=== PATIENT | male | born 1965 | race Hispanic/Latino ===

== ENCOUNTER → 2016-07-13 | Outpatient (REF) | payer MEDICARE, MEDICAID ==
[~2016-07-13] MED LIST: IBUP-1114 PO; NORC5TAB PO; PROA1AER INH; TYLE325T5 PO
[2016-07-13 18:42] LABS: ALBUMIN 4.2 GM/DL (3.2-5.2); ALBUMIN/GLOBULIN RATIO 1.45 (1.00-1.93); ALKALINE PHOSPHATASE 65 U/L (45-117); ALT/SGPT 23 U/L (12-78); ANION GAP 8 MEQ/L (8-16); AST/SGOT 14 U/L (15-37); BILIRUBIN,TOTAL 0.4 MG/DL (0.2-1.0); BLOOD UREA NITROGEN 10 MG/DL (7-18); CALCIUM LEVEL 9.3 MG/DL (8.5-10.1); CARBON DIOXIDE LEVEL 27 MEQ/L (21-32); CHLORIDE LEVEL 104 MEQ/L (98-107); GLOMERULAR FILTRATION RATE > 60.0 (>56); GLUCOSE, FASTING 92 MG/DL (70-105); MAGNESIUM LEVEL 1.9 MG/DL (1.8-2.4); POTASSIUM SERUM 4.4 MEQ/L (3.5-5.1); SODIUM LEVEL 139 MEQ/L (136-145); TOTAL PROTEIN 7.1 GM/DL (6.4-8.2)
[2016-07-13 18:47] LABS: MEAN CORPUSCULAR HEMOGLOBIN 32.8 pg (27.0-33.0); MEAN CORPUSCULAR HGB CONC 33.7 g/dl (32.0-36.5); MEAN CORPUSCULAR VOLUME 97.3 fl (80.0-96.0); RED CELL DISTRIBUTION WIDTH 13.6 % (11.5-14.5); WHITE BLOOD COUNT 5.9 K/mm3 (4.0-10.0)
[2016-07-13 19:32] LABS: FOLATE > 24.0 NG/ML; VITAMIN B12 LEVEL 801 PG/ML
== END ==
LOC: M SFHCPLAZ 15:12
PROVIDERS: ATTEND Nurse Practitioner Family
DX: M54.41 Lumbago with sciatica, right side (principal); M62.830 Muscle spasm of back; Z79.1 Long term (current) use of non-steroidal anti-inflammatories (NSAID); Z79.899 Other long term (current) drug therapy
CPT/HCPCS: 36415; 80053; 82306; 82607; 82746; 83735; 85027; G0463

== ENCOUNTER → 2016-12-20 | Outpatient (REF) | payer MEDICARE, MEDICAID ==
[~2016-12-20] MED LIST changes: +NORC1TAB4 PO; -NORC5TAB PO; -PROA1AER INH; +PROAAER10 INH
[2016-12-20 11:50] LABS: MEAN CORPUSCULAR HEMOGLOBIN 33.2 pg (27.0-33.0); MEAN CORPUSCULAR HGB CONC 33.8 g/dl (32.0-36.5); MEAN CORPUSCULAR VOLUME 98.1 fl (80.0-96.0); WHITE BLOOD COUNT 5.3 K/mm3 (4.0-10.0)
[2016-12-20 12:04] LABS: ALBUMIN 4.1 GM/DL (3.2-5.2); ALBUMIN/GLOBULIN RATIO 1.46 (1.00-1.93); ALKALINE PHOSPHATASE 62 U/L (45-117); ALT/SGPT 23 U/L (12-78); ANION GAP 7 MEQ/L (8-16); AST/SGOT 20 U/L (15-37); BILIRUBIN,TOTAL 0.5 MG/DL (0.2-1.0); BLOOD UREA NITROGEN 4 MG/DL (7-18); CALCIUM LEVEL 9.3 MG/DL (8.5-10.1); CARBON DIOXIDE LEVEL 28 MEQ/L (21-32); CHLORIDE LEVEL 104 MEQ/L (98-107); GLOMERULAR FILTRATION RATE > 60.0 (>56); GLUCOSE, FASTING 113 MG/DL (70-105); POTASSIUM SERUM 4.7 MEQ/L (3.5-5.1); SODIUM LEVEL 139 MEQ/L (136-145); TOTAL PROTEIN 6.9 GM/DL (6.4-8.2)
== END ==
LOC: M SFHCPLAZ 08:55
PROVIDERS: ATTEND Nurse Practitioner Family
DX: J44.9 Chronic obstructive pulmonary disease, unspecified (principal); K21.9 Gastro-esophageal reflux disease without esophagitis; E55.9 Vitamin D deficiency, unspecified

== ENCOUNTER → 2017-04-05 | Outpatient (REF) | payer MEDICARE, MEDICAID ==
[2017-04-05 12:12] LABS: MEAN CORPUSCULAR HEMOGLOBIN 32.5 pg (27.0-33.0); MEAN CORPUSCULAR HGB CONC 33.4 g/dl (32.0-36.5); MEAN CORPUSCULAR VOLUME 97.3 fl (80.0-96.0); RED CELL DISTRIBUTION WIDTH 13.2 % (11.5-14.5); WHITE BLOOD COUNT 6.9 10^3/uL (4.0-10.0)
[2017-04-05 12:42] LABS: ALBUMIN 4.2 GM/DL (3.2-5.2); ALBUMIN/GLOBULIN RATIO 1.17 (1.00-1.93); ALKALINE PHOSPHATASE 68 U/L (45-117); ALT/SGPT 33 U/L (12-78); ANION GAP 7 MEQ/L (8-16); AST/SGOT 21 U/L (15-37); BILIRUBIN,TOTAL 0.5 MG/DL (0.2-1.0); BLOOD UREA NITROGEN 9 MG/DL (7-18); CALCIUM LEVEL 9.2 MG/DL (8.5-10.1); CARBON DIOXIDE LEVEL 29 MEQ/L (21-32); CHLORIDE LEVEL 101 MEQ/L (98-107); CHOLESTEROL LEVEL 238 MG/DL (<200); CREATININE FOR GFR 1.26 MG/DL (0.70-1.30); FREE T4 0.89 NG/DL (0.76-1.46); GLOMERULAR FILTRATION RATE > 60.0 (>56); GLUCOSE, FASTING 105 MG/DL (70-105); POTASSIUM SERUM 4.3 MEQ/L (3.5-5.1); SODIUM LEVEL 137 MEQ/L (136-145); TOTAL PROTEIN 7.8 GM/DL (6.4-8.2); TRIGLYCERIDES LEVEL 371 MG/DL (<150)
== END ==
LOC: M SFHCPLAZ 08:51
PROVIDERS: ATTEND Nurse Practitioner Family
DX: J30.9 Allergic rhinitis, unspecified (principal); M54.5 Low back pain; F41.1 Generalized anxiety disorder; Z13.220 Encounter for screening for lipoid disorders; E55.9 Vitamin D deficiency, unspecified; Z79.899 Other long term (current) drug therapy

== ENCOUNTER → 2017-04-12 | Outpatient (CLI) | payer MEDICARE, MEDICAID ==
--- NOTE | 2017-04-12 15:45 | REP ---
Head CT without contrast: History: Frequent headaches. Tunnel vision. Comparison study: No comparison brain CT. CT findings: Bone window settings demonstrate an intact bony calvarium. There is no evidence of skull fracture or incidental bony calvarial lesion. The visualized paranasal sinuses appear clear. No intraorbital abnormality is seen. On soft tissue window setting images; the lateral, third, and fourth ventricles are normal in size and position. Shaver-white differentiation pattern is normal above and below the tentorium. There are is no evidence of intracranial hemorrhage. No mass, edema, infarction, or midline shift is seen. No extra-axial fluid collection is appreciated. Impression: Negative noncontrast head CT. Signed by Manjeet Byrne MD 04/12/2017 03:36 P
== END ==
LOC: M RAD 14:53
PROVIDERS: ATTEND Nurse Practitioner Family
DX: R51 Headache (principal); H53.483 Generalized contraction of visual field, bilateral
CPT/HCPCS: 70450; G0463

== ENCOUNTER → 2017-05-09 | Outpatient (REF) | payer MEDICARE, MEDICAID | LOC: M SFHCPLAZ 09:36 | PROVIDERS: ATTEND Nurse Practitioner Family | DX: Z12.5 Encounter for screening for malignant neoplasm of prostate (principal) | CPT/HCPCS: 36415; G0103 ==

== ENCOUNTER 2017-11-16 10:35 | Emergency (ER) | payer MEDICARE, MEDICAID ==
[2017-11-16] MEDS: IPRATROPIUM 0.5MG/ALBUTEROL 2.5MG INH SOL UD 3ML (DUONEB)(J7620) NEB (12:26)
[2017-11-16 12:34] LABS: BASO % 0.3 % (0.0-1.0); EOS # 0.2 10^3/uL (0.0-0.50); HEMATOCRIT 41.9 % (42.0-52.0); HEMOGLOBIN 14.7 g/dl (13.5-17.5); IMMATURE GRANULOCYTE % 0.2 % (0-3.0); LYMPH # 1.7 10^3/uL (1.5-4.5); LYMPH % 25.2 % (24.0-44.0); MEAN CORPUSCULAR HEMOGLOBIN 32.6 pg (27.0-33.0); MEAN CORPUSCULAR HGB CONC 35.1 g/dl (32.0-36.5); MEAN CORPUSCULAR VOLUME 92.9 fl (80.0-96.0); MONO # 0.6 10^3/uL (0.0-0.8); MONO % 9.4 % (0.0-5.0); NEUTROPHILS # 4.1 10^3/uL (1.8-7.7); NEUTROPHILS % 61.9 % (36.0-66.0); PLATELET COUNT, AUTOMATED 210 10^3/uL (150-450); RED BLOOD COUNT 4.51 10^6/uL (4.30-6.10); RED CELL DISTRIBUTION WIDTH 12.9 % (11.5-14.5); WHITE BLOOD COUNT 6.6 10^3/uL (4.0-10.0)
[2017-11-16 12:52] LABS: D-DIMER QUANT 448.6 ng/ml (<500)
[2017-11-16 12:57] LABS: ANION GAP 5 MEQ/L (8-16); BLOOD UREA NITROGEN 13 MG/DL (7-18); CARBON DIOXIDE LEVEL 25 MEQ/L (21-32); CHLORIDE LEVEL 107 MEQ/L (98-107); CK-MB VALUE MASS 1.8 NG/ML (<3.6); CPK CREATINE PHOSPHOKINASE 265 U/L (39-308); CREATININE FOR GFR 1.17 MG/DL (0.70-1.30); GLOMERULAR FILTRATION RATE > 60.0 (>56); GLUCOSE, FASTING 98 MG/DL (70-100); MB/CK RELATIVE INDEX 0.67 (< OR =4); SODIUM LEVEL 137 MEQ/L (136-145); TROPONIN I < 0.02 NG/ML (< 0.10)
== END 2017-11-16 16:14 | disposition home or self-care (01) ==
LOC: M ED 10:35
DX: S29.011A Strain of muscle and tendon of front wall of thorax, initial encounter (principal); R05 Cough; J44.9 Chronic obstructive pulmonary disease, unspecified; X58.XXXA Exposure to other specified factors, initial encounter; Y92.9 Unspecified place or not applicable; Y93.9 Activity, unspecified; Y99.9 Unspecified external cause status; Z72.0 Tobacco use; Z88.5 Allergy status to narcotic agent; Z88.8 Allergy status to other drugs, medicaments and biological substances
CPT/HCPCS: 71046

== ENCOUNTER 2018-02-06 23:49 | Emergency (ER) | payer MEDICARE, MEDICAID ==
[2018-02-07] MEDS: dexameTHASONE 20 MG/5 ML VIAL (J1100) IV (01:04)
[2018-02-07] MEDS: IPRATROPIUM 0.5MG/ALBUTEROL 2.5MG INH SOL UD 3ML (DUONEB)(J7620) NEB (01:04)
== END 2018-02-07 02:12 | disposition home or self-care (01) ==
LOC: M ED 23:49
DX: J42 Unspecified chronic bronchitis (principal); R94.31 Abnormal electrocardiogram [ECG] [EKG]; F17.200 Nicotine dependence, unspecified, uncomplicated; Z88.5 Allergy status to narcotic agent; Z88.8 Allergy status to other drugs, medicaments and biological substances
CPT/HCPCS: J1100

== ENCOUNTER 2018-06-08 18:12 | Emergency (ER) | payer MEDICARE, MEDICAID ==
[2018-06-08] MEDS: dexameTHASONE 20 MG/5 ML VIAL (J1100) IV (20:00)
[2018-06-08] MEDS: IPRATROPIUM 0.5MG/ALBUTEROL 2.5MG INH SOL UD 3ML (DUONEB)(J7620) NEB (20:11)
[2018-06-08 20:16] LABS: HEMATOCRIT 42.5 % (42.0-52.0); HEMOGLOBIN 14.6 g/dl (13.5-17.5); MEAN CORPUSCULAR HEMOGLOBIN 32.7 pg (27.0-33.0); MEAN CORPUSCULAR HGB CONC 34.4 g/dl (32.0-36.5); MEAN CORPUSCULAR VOLUME 95.1 fl (80.0-96.0); PLATELET COUNT, AUTOMATED 164 10^3/uL (150-450); RED BLOOD COUNT 4.47 10^6/uL (4.30-6.10); WHITE BLOOD COUNT 5.5 10^3/uL (4.0-10.0)
[2018-06-08 20:40] LABS: ANION GAP 6 MEQ/L (8-16); BLOOD UREA NITROGEN 9 MG/DL (7-18); CARBON DIOXIDE LEVEL 27 MEQ/L (21-32); CHLORIDE LEVEL 104 MEQ/L (98-107); CREATININE FOR GFR 0.96 MG/DL (0.70-1.30); GLOMERULAR FILTRATION RATE > 60.0 (>56); GLUCOSE, FASTING 95 MG/DL (70-100); POTASSIUM SERUM 4.7 MEQ/L (3.5-5.1); SODIUM LEVEL 137 MEQ/L (136-145)
== END 2018-06-08 21:30 | disposition home or self-care (01) ==
LOC: M ED 18:12
DX: J20.9 Acute bronchitis, unspecified (principal)
CPT/HCPCS: J1100

== ENCOUNTER 2018-06-12 12:09 | Emergency (ER) | payer MEDICARE, MEDICAID ==
[~2018-06-12] VITALS: Ht 177.8 cm; Wt 86.4 kg
[~2018-06-12 12:09] MED LIST changes: +PRED20TA PO
[2018-06-12] MEDS ORDERED: BENZ200C70 (12:16)
[2018-06-12] MEDS ORDERED: AUGMENTIN 875 MG TAB PO ONE (12:30)
[2018-06-12] MEDS: IPRATROPIUM 0.5MG/ALBUTEROL 2.5MG INH SOL UD 3ML (DUONEB)(J7620) NEB SCH ×2 (12:46→13:09)
[2018-06-12] MEDS ORDERED: MUCI600T37 PO (13:43)
[2018-06-12] MEDS ORDERED: PRED10TA2 PO (13:43)
[2018-06-12] MEDS ORDERED: AUGM875T28 PO (13:43)
[2018-06-12 13:47] VITALS: BP 147/89
== END 2018-06-12 13:51 | disposition home or self-care (01) ==
LOC: M ED 12:09
DX: J44.1 Chronic obstructive pulmonary disease with (acute) exacerbation (principal); J06.9 Acute upper respiratory infection, unspecified; F17.210 Nicotine dependence, cigarettes, uncomplicated

== ENCOUNTER → 2019-08-29 | Outpatient (CLI) | payer MEDICARE, MEDICAID ==
[~2019-08-29] MED LIST changes: +AUGM875T28 PO; +BENZ200C70; +MUCI600T37 PO; -NORC1TAB4 PO; +NORC1TAB7 PO; +PRED10TA2 PO
--- NOTE | 2019-08-29 15:21 | REPPI ---
REASON FOR EXAM: History of COPD and tobacco abuse. COMPARISON: Multiple, the latest 06/08/2018 There has been no significant change from the prior exam. The lung braga are hyperexpanded. No acute patchy parenchymal opacities or pleural effusions have developed. The heart is not enlarged. The osseous structures are stable and intact. IMPRESSION: No evidence of acute cardiopulmonary disease. Findings as described above. Electronically Signed by Luke Vázquez DO 08/29/2019 03:36 P
== END ==
LOC: M PLAIMG 13:19
PROVIDERS: ATTEND Nurse Practitioner Family
DX: J44.9 Chronic obstructive pulmonary disease, unspecified (principal); M62.838 Other muscle spasm; F41.1 Generalized anxiety disorder; R20.2 Paresthesia of skin; Z13.21 Encounter for screening for nutritional disorder; Z13.220 Encounter for screening for lipoid disorders; Z12.5 Encounter for screening for malignant neoplasm of prostate; Z79.899 Other long term (current) drug therapy
CPT/HCPCS: 71046; 80053; 80061; 82306; 82607; 82746; 83735; 84439; 84443; 85027; G0103

== ENCOUNTER → 2019-08-29 | Outpatient (REF) | payer MEDICARE, MEDICAID ==
[2019-08-29 18:02] LABS: HEMATOCRIT 45.8 % (42.0-52.0); HEMOGLOBIN 15.5 g/dl (13.5-17.5); MEAN CORPUSCULAR HEMOGLOBIN 33.1 pg (27.0-33.0); MEAN CORPUSCULAR HGB CONC 33.8 g/dl (32.0-36.5); MEAN CORPUSCULAR VOLUME 97.9 fl (80.0-96.0); PLATELET COUNT, AUTOMATED 222 10^3/uL (150-450); RED BLOOD COUNT 4.68 10^6/uL (4.30-6.10); WHITE BLOOD COUNT 6.9 10^3/uL (4.0-10.0)
[2019-08-29 18:26] LABS: ALBUMIN 4.2 GM/DL (3.2-5.2); ALT/SGPT 38 U/L (12-78); BILIRUBIN,TOTAL 0.5 MG/DL (0.2-1.0); BLOOD UREA NITROGEN 7 MG/DL (7-18); CALCIUM LEVEL 9.4 MG/DL (8.5-10.1); CARBON DIOXIDE LEVEL 27 MEQ/L (21-32); CHLORIDE LEVEL 106 MEQ/L (98-107); CHOLESTEROL LEVEL 218 MG/DL (<200); CHOLESTEROL RISK RATIO 5.317 (<5); FREE T4 1.06 NG/DL (0.76-1.46); GLOMERULAR FILTRATION RATE > 60.0 (>56); GLUCOSE, FASTING 96 MG/DL (70-100); HDL CHOLESTEROL 41 MG/DL (>40); LDL CHOLESTEROL 134 MG/DL (<100); MAGNESIUM LEVEL 1.9 MG/DL (1.8-2.4); NON-HDL-C 177 MG/DL; POTASSIUM SERUM 4.3 MEQ/L (3.5-5.1); SODIUM LEVEL 138 MEQ/L (136-145); TOTAL PROTEIN 7.4 GM/DL (6.4-8.2); TRIGLYCERIDES LEVEL 217 MG/DL (<150)
[2019-08-29 18:32] LABS: FOLATE > 24.0 NG/ML; TOTAL 25(OH) VITAMIN D 25.9 NG/ML (30.0-100.0); VITAMIN B12 LEVEL 955 PG/ML
== END ==
LOC: M SFHCPLAZ 13:20
PROVIDERS: ATTEND Nurse Practitioner Family
DX: M62.838 Other muscle spasm (principal); F41.1 Generalized anxiety disorder; R20.2 Paresthesia of skin; Z13.21 Encounter for screening for nutritional disorder; Z13.220 Encounter for screening for lipoid disorders; Z12.5 Encounter for screening for malignant neoplasm of prostate

== ENCOUNTER → 2020-12-03 | Outpatient (CLI) | payer MEDICARE, MEDICAID ==
[~2020-12-03] MED LIST changes: +BREO1INH INH; +DOK1CAP7 PO; +IBUP200T45 PO; +MIRA1POW3 PO
--- NOTE | 2020-12-03 12:33 | REPPI ---
INDICATION: M79.652 LEFT THIGH PAIN. COMPARISON: None TECHNIQUE: AP and frog-lateral views FINDINGS: The hip joint space is symmetric and relatively well maintained. There is no prominent marginal osteophytosis or buttressing. There is a subtle femoral head CAM deformity. IMPRESSION: No acute abnormality. Findings as described above. A CAM deformity of the femoral head has been shown to be associated with labral pathology. If labral pathology is of clinical concern then consider follow-up with hip MRI arthrography <Electronically signed by Luke Vázquez > 12/03/20 [id number]
--- NOTE | 2020-12-03 12:35 | REPPI ---
INDICATION: M79.652 LEFT THIGH PAIN. COMPARISON: None. TECHNIQUE: AP and frog-lateral views FINDINGS: There is no acute fracture or destructive osseous lesion. IMPRESSION: No acute abnormality. See the hip report. <Electronically signed by Luke Vázquez > 12/03/20 [id number]
--- NOTE | 2020-12-03 12:42 | REPPI ---
INDICATION: M39.92XA INJURY OF LOW BACK, INITIAL ENCOUNTER. COMPARISON: 01/27/2015 TECHNIQUE: Multiple views of the lumbosacral spine. FINDINGS: Minimal marginal osteophytosis has developed on the right at L3-4. There is no spondylolisthesis. Flexion and extension bending views shows no evidence of instability. There is no significant change in appearance of the disc spaces. Vertebral body height and alignment is again seen to be within normal limits. IMPRESSION: Essentially no change compared to the prior exam. There is no evidence of an acute abnormality. Previous CT of the abdomen and pelvis 05/18/2015 did show bilateral L5 spondylolysis which is not identifiable on today's oblique views, however, those views were not centered over the lumbar region. Today's lateral view does indicate pars defects at that level. Since the flexion and extension bending views were also centered at the T12-L1 level rather than L3 I suppose a subtle degree of instability could be obscured. Consider repeat with a radiographic being centered at the L3 level if clinically relevant. <Electronically signed by Luke Vázquez > 12/03/20 [id number]
== END ==
LOC: M PLAIMG 10:28
PROVIDERS: ATTEND Physician Assistant
DX: M79.652 Pain in left thigh (principal); S39.92XA Unspecified injury of lower back, initial encounter; X58.XXXA Exposure to other specified factors, initial encounter; Y92.9 Unspecified place or not applicable; Y99.9 Unspecified external cause status
CPT/HCPCS: 72114; 73502; 73552; G0463

== ENCOUNTER 2020-12-05 01:38 | Observation (INO) | payer MEDICARE, MEDICAID ==
[~2020-12-05] VITALS: Ht 177.8 cm; Wt 95.3 kg
[~2020-12-05 01:38] MED LIST changes: -BREO1INH INH; -DOK1CAP7 PO; -IBUP200T45 PO; -MIRA1POW3 PO
[2020-12-05 02:16] LABS: BASO % 0.1 % (0.0-1.0); EOS # 0.1 10^3/uL (0.0-0.5); EOS % 0.8 % (0.0-3.0); HEMATOCRIT 45.2 % (42.0-52.0); HEMOGLOBIN 15.3 g/dl (13.5-17.5); LYMPH % 14.3 % (24.0-44.0); MEAN CORPUSCULAR HEMOGLOBIN 32.2 pg (27.0-33.0); MEAN CORPUSCULAR HGB CONC 33.8 g/dl (32.0-36.5); MEAN CORPUSCULAR VOLUME 95.2 fl (80.0-96.0); MONO # 1.4 10^3/uL (0.0-0.8); MONO % 10.2 % (2.0-8.0); NEUTROPHILS # 10.3 10^3/uL (1.5-8.5); NEUTROPHILS % 74.1 % (36.0-66.0); PLATELET COUNT, AUTOMATED 223 10^3/uL (150-450); RED BLOOD COUNT 4.75 10^6/uL (4.30-6.10); WHITE BLOOD COUNT 13.9 10^3/uL (4.0-10.0)
[2020-12-05 02:39] LABS: ALBUMIN 4.1 GM/DL (3.2-5.2); ALT/SGPT 33 U/L (12-78); BILIRUBIN,DIRECT 0.2 MG/DL (0.0-0.2); BILIRUBIN,TOTAL 0.7 MG/DL (0.2-1.0); BLOOD UREA NITROGEN 11 MG/DL (7-18); CALCIUM LEVEL 9.6 MG/DL (8.5-10.1); CARBON DIOXIDE LEVEL 26 MEQ/L (21-32); CHLORIDE LEVEL 104 MEQ/L (98-107); CREATININE FOR GFR 1.29 MG/DL (0.70-1.30); GLOMERULAR FILTRATION RATE > 60.0 (>56); GLUCOSE, FASTING 118 MG/DL (70-100); LIPASE 85 U/L (73-393); POTASSIUM SERUM 4.1 MEQ/L (3.5-5.1); SODIUM LEVEL 136 MEQ/L (136-145); TOTAL PROTEIN 7.9 GM/DL (6.4-8.2)
[2020-12-05] MEDS ORDERED: ISOVUE-370 76% 100ML VIAL As Ordered ONE (04:47)
--- NOTE | 2020-12-05 07:39 | REPVR ---
PROCEDURE INFORMATION: Exam: CT Abdomen And Pelvis With Contrast Exam date and time: 12/05/2020 4:44 AM Age: 55 years old Clinical indication: Abdominal pain; Localized; Left lower quadrant (llq); Additional info: Llq pain, constipation TECHNIQUE: Imaging protocol: Computed tomography of the abdomen and pelvis with contrast. Radiation optimization: All CT scans at this facility use at least one of these dose optimization techniques: automated exposure control; mA and/or kV adjustment per patient size (includes targeted exams where dose is matched to clinical indication); or iterative reconstruction. Contrast material: ISO; Contrast volume: 100 ml; Contrast route: INTRAVENOUS (IV); COMPARISON: CT ABD PELVIS WITH CONTRAST 05/18/2015 11:09 PM FINDINGS: Lungs: The visualized portions of the lung bases are normal. Liver: There are no focal liver lesions present. Gallbladder and bile ducts: The gallbladder is normal with no stones or biliary ductal dilation. Pancreas: The pancreas is normal with no ductal dilation. Spleen: The spleen is normal. Adrenal glands: The adrenal glands are normal. Kidneys and ureters: The kidneys are unremarkable. There are no ureteral stones or hydronephrosis. Stomach and bowel: Mild diverticulosis is present in the distal colon. Mild diverticulosis is present in the distal colon. There is segmental thickening and mucosal hyperenhancement of the mid sigmoid colon with a thickened diverticulum and adjacent stranding. There is mild segmental thickening of the distal sigmoid colon and proximal rectum, which may be due to secondary inflammation as it passes close to the inflamed segment of the mid sigmoid colon. The small bowel appears unremarkable. Appendix: There has been an appendectomy. Intraperitoneal space: There is a trace of free fluid in the pelvis. No organized fluid collections are identified. There is no free intraperitoneal air. Retroperitoneal space: There is mild, nonspecific stranding in the retroperitoneum around the distal abdominal aorta and the proximal iliac arteries, not seen on the prior exam. Vasculature: No aortic aneurysm. Atherosclerotic changes are present in the infrarenal abdominal aorta and the common iliac arteries. Lymph nodes: No lymphadenopathy is seen. Urinary bladder: The bladder is unremarkable. No stones identified. Reproductive: The prostate gland appears normal. Bones/joints: There are pars defects bilaterally at L5. There is a small anterolisthesis of L5 on S1 and evidence degenerative disc disease at this level. Soft tissues: The soft tissues appear unremarkable. IMPRESSION: 1. Segmental thickening and hyperenhancement of the sigmoid colon with a thickened diverticulum, adjacent stranding, and a small amount of free fluid, most consistent with acute diverticulitis. No evidence of abscess or perforation. 2. Mild thickening of the distal sigmoid colon/proximal rectum, which are adjacent to the inflamed segment of the mid sigmoid colon, and may be secondarily inflamed. 3. Nonspecific stranding in the retroperitoneum around the distal abdominal aorta and the proximal common iliac arteries. 4. Atherosclerotic plaque in the infrarenal aorta and common iliac arteries but no aneurysmal dilation. Electronically signed by: Rajni Lopez On 12/05/2020 07:39:41 AM
[2020-12-05] MEDS ORDERED: NS 1,000 ML IV ONE (07:50)
[2020-12-05] MEDS ORDERED: NICOTINE 14 MG/24 HR TRANSDERMAL TD ONE (07:55)
[2020-12-05] MEDS ORDERED: PIPERACILLIN/TAZOBACTAM SOD 4.5 GM in D5W MINI-BAG PLUS 50 ML IV ONE (07:55)
[2020-12-05] MEDS ORDERED: IBUP200T45 PO (08:09)
[2020-12-05] MEDS ORDERED: BREO1INH INH (08:09)
--- NOTE | 2020-12-05 09:38 | REP ---
INDICATION: Abdl pain. COMPARISON: 08/29/2019. TECHNIQUE: Single portable AP view of the chest was performed. FINDINGS: There is no acute infiltrate or pulmonary edema. Lungs are clear. The heart is not significantly enlarged. The mediastinal silhouette is unremarkable. The visualized osseous structures are intact. IMPRESSION: No acute pulmonary disease. <Electronically signed by Saurav Shaver > 12/05/20 [id number]
[2020-12-05] MEDS ORDERED: DOCUSATE SODIUM 100MG CAPSULE PO PRN (10:25)
[2020-12-05] MEDS ORDERED: ACETAMINOPHEN TAB 650MG DOSE (2X325MG) PO PRN (10:25)
--- NOTE | 2020-12-05 13:39 | HPEPDOC ---
[facility] Medical History & Physical Date of Admission Dec 05, 2020 Date of Service: Dec 05, 2020 Primary Care Physician: IMTIAZ HOYOS NP Attending Physician: BRITTANY GARCIA MD History and Physical CHIEF COMPLAINT: Constipation, LLQ abdominal pressure/discomfort HISTORY OF PRESENT ILLNESS: Bjorn is a pleasant 55yo male w/ notable PMHx of COPD, depression, vertigo, 40+ pack year smoker, and migraines with aura, who presented to the [facility] ED via personal bicycle early in the morning of 12/05/2020 c/o left lower abdominal quadrant discomfort/pressure, constipation, and generally feeling unwell. He reports that at 7 PM the prior evening (12/04) the patient felt "crappy" with associated diaphoresis. He also had not had a bowel movement for the past 3 days with the accompanying left lower quadrant discomfort and pressure. During the overnight of , patient continued to wake up every hour to urinate and was experiencing intermittent cold and hot sweats with nausea. After smoking a cigarette around 1 AM, he was concerned enough about his symptoms and subsequently decided to present to the ED. In the ED, patient was found to have leukocytosis with a left shift, and CT abdomen pelvis showed sigmoid colonic changes in the form of adjacent stranding, enhancement, and thickening consistent with acute diverticulitis. No free air indicating perforation was appreciated. The ED provider subsequently contacted the on-call general surgeon regarding CT results (Dr. Morelos), and admission was chosen for continued surveillance with administration of antibiotics. P atient was administered a one-time dose of intravenous Zosyn, as well as a 1 L normal saline bolus. Blood cultures were drawn as well as a respiratory panel. Urinalysis was unremarkable other than 2+ blood. EKG showed normal sinus rhythm. A rectal exam was done by ED providers that was unremarkable for any masses, bleeding sources, or other remarkable pathology. Patient was subsequently admitted under the care of the hospitalist service under observation status primarily for acute colonic diverticulitis. PAST MEDICAL HISTORY: COPD, likely secondary to 40+ pack year smoking history Depression, not currently on any medications History of migraine with aura (blurry vision) Vertigo Chronic lumbago, taking 3 tablets of IBU daily PAST SURGICAL HISTORY: Left breast reduction due to symptomatic gynecomastia, 1977 Laparoscopic appendectomy, May 19, 2015 Removal of 9 nonrestorable teeth, June 03, 2009 [place] teeth extraction SOCIAL HISTORY: , has 2 grown children. 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 He has smoked 1 pack of cigarettes /day for the past 43 years ([id number] hi story) Denies any current or former alcohol use. Denies any current or former illegal and/or IV drug use. FAMILY HISTORY: Father: , suicide; history of unspecified mental illness Mother: Living; no significant medical history reported Siblings: Patient had 1 sister who is as a result of cervical cancer Children: Both of patient's adult children are healthy with no significant med ical issues ALLERGIES: Please see below. REVIEW OF SYSTEMS: CONSTITUTIONAL: Reports both hot and cold sweats. Denies any recent fevers, chills, or unintentional change in weight. HEENT: Reports blurriness as his aura with migraines but denies any currently. Denies any diplopia or tinnitus CARDIOVASCULAR: Denies chest pain, chest pressure, or palpitations RESPIRATORY: Denies shortness of breath, cough, or pleuritic chest pain GASTROINTESTINAL: Reports left lower quadrant abdominal pressure and discomfort (as detailed in HPI), that has improved over the past few hours. Patient reports both flatus and burping over the past couple hours. He reports constipation with no bowel movement since 12/02 without improvement on home Metamucil. Prior to constipation, denies any hematochezia, melena, or blood on toilet tissue. GENITOURINARY: Denies any dysuria, hematuria, suprapubic pain, or flank pain. NEUROLOGICAL: Denies current headache, or numbness, paresthesias of extremities ENDOCRINE: Reports recent hot and cold intolerance with sweats HEMATOLOGIC: Denies any recent easy bleeding or bruising LYMPHATIC: Denies any new lumps or bumps. HOME MEDICATIONS: Please see below. PHYSICAL EXAMINATION: VITAL SIGNS: Please see below GENERAL APPEARANCE: Pleasant male lying upright in bed. No acute distress. Mild diaphoresis present on forehead. HEENT: Normocephalic. There appears to be a mild, small irritation/abrasion over the left forehead. Noninjected, anicteric sclera. PERRLA. Oral cavity: Upper and lower dentures in place. Moist mucous membranes. No pharyngeal erythema or exudate appreciated. Neck: Supple, trachea midline. No lymphadenopathy appreciated. CARDIOVASCULAR: Regular rate, regular rhythm. Normal S1, S2. No murmurs or rubs are appreciated. LUNGS: Some mild right basilar crackles are appreciated posteriorly, otherwise no other adventitious breath sounds are appreciated. Symmetric chest expansion. No accessory muscle use. Breathing room air and speaking full sentences. ABDOMEN: Soft, nondistended, nontender. There is no guarding or rigidity. There is no tympany on percussion. Negative Farah sign. No hepatosplenomegaly appreciated. Hyperactive bowel sounds present throughout. SKIN: There is some scattered areas of diaphoresis and overall, skin is clammy. MUSCULOSKELETAL: 5/5 muscle strength of upper and lower extremities bilaterally. EXTREMITIES: Full range of motion of all extremities. 2+ radial and posterior tibial pulses bilaterally. Bilateral lower extremities are free of pitting edema. Tattoo present of the left arm. NEUROLOGICAL: No gross focal neurologic deficits are appreciated. Nondysarthric speech. PSYCHIATRIC: Pleasant mood. Affect appears appropriate. LABORATORY DATA: Please see below. IMAGING: CT abdomen pelvis with IV contrast, 12/05/2020 FINDINGS: Lungs: The visualized portions of the lung bases are normal. Liver: There are no focal liver lesions present. Gallbladder and bile ducts: The gallbladder is normal with no stones or biliary ductal dilation. Pancreas: The pancreas is normal with no ductal dilation. Spleen: The spleen is normal. Adrenal glands: The adrenal glands are normal. Kidneys and ureters: The kidneys are unremarkable. There are no ureteral stones or hydronephrosis. Stomach and bowel: Mild diverticulosis is present in the distal colon. Mild diverticulosis is present in the distal colon. There is segmental thickening and mucosal hyperenhancement of the mid sigmoid colon with a thickened diverticulum and adjacent stranding. There is mild segmental thickening of the distal sigmoid colon and proximal rectum, which may be due to secondary inflammation as it passes close to the inflamed segment of the mid sigmoid colon. The small bowel appears unremarkable. Appendix: There has been an appendectomy. Intraperitoneal space: There is a trace of free fluid in the pelvis. No organized fluid collections are identified. There is no free intraperitoneal air. Retroperitoneal space: There is mild, nonspecific stranding in the retroperitoneum around the distal abdominal aorta and the proximal iliac arteries, not seen on the prior exam. Vasculature: No aortic aneurysm. Atherosclerotic changes are present in the infrarenal abdominal aorta and the common iliac arteries. Lymph nodes: No lymphadenopathy is seen. Urinary bladder: The bladder is unremarkable. No stones identified. Reproductive: The prostate gland appears normal. Bones/joints: There are pars defects bilaterally at L5. There is a small anterolisthesis of L5 on S1 and evidence degenerative disc disease at this level. Soft tissues: The soft tissues appear unremarkable. IMPRESSION: 1. Segmental thickening and hyperenhancement of the sigmoid colon with a thickened diverticulum, adjacent stranding, and a small amount of free fluid, most consistent with acute diverticulitis. No evidence of abscess or perforation. 2. Mild thickening of the distal sigmoid colon/proximal rectum, which are adjacent to the inflamed segment of the mid sigmoid colon, and may be secondarily inflamed. 3. Nonspecific stranding in the retroperitoneum around the distal abdominal aorta and the proximal common iliac arteries. 4. Atherosclerotic plaque in the infrarenal aorta and common iliac arteries but no aneurysmal dilation. MICROBIOLOGY: Please see below. ASSESSMENT & PLAN: This is a pleasant 55yo male w/ notable h/o COPD with 40+ pack year smoking history, vertigo, migraines with aura, depression not on medication who presented to the ED on infection control preventionist of 12/05/2020 complaining of constipation, diaphoresis, and overall not feeling well. Was found to have leukocytosis with abdomen pelvis CT findings consistent with acute colonic diverticulitis. #Acute sigmoid colon diverticulitis -CT abdomen and pelvis in the ED showed thickened diverticulum with segmental thickening and hyperenhancement of sigmoid colon, adjacent stranding, and is small amount of free fluid consistent with acute diverticulitis. -Initial WBC 13.9 with left shift. -Status post one-time IV Zosyn dose and 1 L NS bolus in the ED. -Rectal exam in the ED unremarkable. -Due to the fact that patient did not have any nausea, vomiting, or significant abdominal pain upon admission, decision was made to switch patient to a clear liquid diet and to oral antibiotics in the form of ciprofloxacin and metronid azole. -As needed Tylenol for pain as patient reports current pain is decreasing and level was quite mild overall -Case discussed with on-call general surgeon (Dr. George) with collaborative decision due to patient's relatively mild symptoms to admit for observation, monitor CBC, encourage BM, and consider discharge home tomorrow should he remain stable. -Initial blood cultures drawn in ED, pending; lactic acid unremarkable (0.8) #Constipation -Scheduled MiraLAX and as needed Colace -Status post 1 L NS bolus in ED #Leukocytosis with left shift -Likely secondary to acute sigmoid colon diverticulitis -We will continue to monitor CBC -Patient is afebrile -Lactic acid was unremarkable. -2 blood cultures were taken and are pending. #COPD with 40+ pack year smoking history -Patient does not currently follow with pulmonology -Due to lack of current pulmonology follow-up and uncertainty regarding formal PFT history, as well as robust O2 saturation on room air upon admission, oxygen titration orders placed at greater than 92% -Patient's home as needed albuterol continued -Patient's home fluticasoneVilanterol not on hospital formulary, substituted by Advair HFA #DVT prophylaxis: Teds and sequentials Disposition: Patient will be admitted under observation status for 24-hour with monitoring of his blood count and overall status. Will consider discharge home tomorrow should he remain stable and have a bowel movement. Vital Signs Vital Signs Date Time Temp Pulse Resp B/P (MAP) Pulse Ox O2 Delivery O2 Flow Rate FiO2 12/05/20 08:00 85 111/76 (88) 89 Room Air 12/05/20 06:30 19 12/05/20 06:00 99.7 Laboratory Data Labs 24H Laboratory Tests 2 12/05/20 01:58: Immature Granulocyte % (Auto) 0.5, Neutrophils (%) (Auto) 74.1H, Lymphocytes (%) (Auto) 14.3L, Monocytes (%) (Auto) 10.2H, Eosinophils (%) (Auto) 0.8, Basophils (%) (Auto) 0.1, Neutrophils # (Auto) 10.3H, Lymphocytes # (Auto) 2.0, Monocytes # (Auto) 1.4H, Eosinophils # (Auto) 0.1, Basophils # (Auto) 0.0, Nucleated Red Blood Cells % (auto) 0.0, Urine Color YELLOW, Urine Appearance CLEAR, Urine pH 6.0, Urine Specific [place] 1.009, Urine Protein NEGATIVE, Urine Glucose (UA) NEGATIVE, Urine Ketones NEGATIVE, Urine Blood 2+H, Urine Nitrite NEGATIVE, Urine Bilirubin NEGATIVE, Urine Urobilinogen 0.2, Urine Leukocyte Esterase NEGATIVE, Urine WBC (Auto) 0, Urine RBC (Auto) 3, Urine Hyaline Casts (Auto) 0, Urine Bacteria (Auto) NEGATIVE, Urine Squamous Epithelial Cells 0, Urine Sperm (Auto) , Anion Gap 6L, Glomerular Filtration Rate > 60.0, Calcium Level 9.6, Total Bilirubin 0.7, Direct Bilirubin 0.2, Aspartate Amino Transf (AST/SGOT) 17, Alanine Aminotransferase (ALT/SGPT) 33, Alkaline Phosphatase 69, Total Protein 7.9, Albumin 4.1, Albumin/Globulin Ratio 1.1, Lipase 85 12/05/20 10:53: Lactic Acid Level 0.8 CBC/BMP Laboratory Tests 12/05/20 01:58 Microbiology Microbiology 12/05/20 Blood Culture, Received Pending 12/05/20 Respiratory Virus Panel (PCR) ([facility]) - Final, Complete 12/05/20 Blood Culture, Received Pending Home Medications Scheduled Fluticasone/Vilanterol (Breo Ellipta 100-25 Mcg INH) 1 Each Blst.w.dev, 1 PUFF INH DAILY Ibuprofen (Ibu-200) 200 Mg Tablet, 600 MG PO DAILY Scheduled PRN Albuterol Sulfate (Proair Hfa) 108 Mcg/Act Aer, 2 PUFFS INH Q4H PRN for SHORTNESS OF BREATH Allergies Coded Allergies: morphine (Verified Allergy, Severe, CARDIAC ARREST, 12/05/20) sertraline (Verified Adverse Reaction, Unknown, DIARRHEA, 12/05/20) A-FIB/CHADSVASC A-FIB History Current/History of A-Fib/PAF?: No Current PO Anticoag Therapy: No GME ATTESTATION GME ATTESTATION My faculty preceptor for this patient encounter was physically present during the encounter and was fully available. All aspects of the patient interview, examination, medical decision making process, and medical care plan development were reviewed and approved by the faculty preceptor. The faculty preceptor is aware and concurs with the plan as stated in the body of this note and will attest to such by his/her cosignature. ATTENDING NOTE I, Brittany Garcia, have independently examined this patient and performed my own physical exam, as well as reviewed the documentation and edited where necessary. I have discussed in detail with the resident / student the findings and plan of treatment as documented by the resident / student and edited their note. I agree with their findings and treatment plan and have edited their documentation. I will continue to follow the patient during this hospital stay. LYNDA SARMIENTO D.O. Dec 05, 2020 13:39 BRITTANY GARCIA MD Dec 05, 2020 16:17
[2020-12-05] MEDS ORDERED: ALBUTEROL 90 MCG/ACT 8GM HFA INHALER INH PRN (13:55)
[2020-12-05] MEDS: metroNIDAZOLE (FLAGYL) 500MG TABLET PO SCH ×2 (15:21→23:00)
[2020-12-05] MEDS: CIPROFLOXACIN 500MG TABLET PO SCH ×2 (15:22→20:04)
[2020-12-05] MEDS: MIRALAX *UNIT DOSE* 17GM PACKET PO SCH (15:22)
[2020-12-05 16:50] VITALS: BP 139/86
[2020-12-05] MEDS: ADVAIR HFA 45/21MCG INHALER INH SCH (19:57)
[2020-12-05 21:02] VITALS: BP 118/84
[2020-12-06] MEDS: metroNIDAZOLE (FLAGYL) 500MG TABLET PO SCH (05:01)
[2020-12-06 05:59] VITALS: BP 128/96
[2020-12-06 06:39] LABS: BASO % 0.4 % (0.0-1.0); EOS # 0.1 10^3/uL (0.0-0.5); EOS % 1.8 % (0.0-3.0); HEMATOCRIT 42.1 % (42.0-52.0); LYMPH # 1.9 10^3/uL (1.5-5.0); LYMPH % 25.9 % (24.0-44.0); MEAN CORPUSCULAR HGB CONC 33.3 g/dl (32.0-36.5); MEAN CORPUSCULAR VOLUME 96.3 fl (80.0-96.0); MONO # 0.8 10^3/uL (0.0-0.8); MONO % 11.5 % (2.0-8.0); NEUTROPHILS # 4.4 10^3/uL (1.5-8.5); PLATELET COUNT, AUTOMATED 216 10^3/uL (150-450); RED BLOOD COUNT 4.37 10^6/uL (4.30-6.10); WHITE BLOOD COUNT 7.3 10^3/uL (4.0-10.0)
--- NOTE | 2020-12-06 06:47 | ECGEPIP ---
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
[2020-12-06 07:03] LABS: ALBUMIN 3.4 GM/DL (3.2-5.2); ALT/SGPT 25 U/L (12-78); BILIRUBIN,TOTAL 0.6 MG/DL (0.2-1.0); BLOOD UREA NITROGEN 9 MG/DL (7-18); CALCIUM LEVEL 8.8 MG/DL (8.5-10.1); CARBON DIOXIDE LEVEL 26 MEQ/L (21-32); CHLORIDE LEVEL 107 MEQ/L (98-107); CREATININE FOR GFR 1.06 MG/DL (0.70-1.30); GLOMERULAR FILTRATION RATE > 60.0 (>56); GLUCOSE, FASTING 101 MG/DL (70-100); POTASSIUM SERUM 3.9 MEQ/L (3.5-5.1); SODIUM LEVEL 137 MEQ/L (136-145); TOTAL PROTEIN 7.6 GM/DL (6.4-8.2)
[2020-12-06] MEDS: ADVAIR HFA 45/21MCG INHALER INH SCH (08:04)
[2020-12-06] MEDS: CIPROFLOXACIN 500MG TABLET PO SCH (08:36)
[2020-12-06] MEDS: MIRALAX *UNIT DOSE* 17GM PACKET PO SCH (08:36)
[2020-12-06] MEDS ORDERED: MIRA1POW3 PO (09:08)
[2020-12-06] MEDS ORDERED: DOK1CAP7 PO (09:08)
--- NOTE | 2020-12-06 09:53 | DS.PDOC ---
Discharge Summary General Date of Admission Dec 05, 2020 at 01:39 Date of Discharge Sunday, December 06, 2020 Primary Care Physician: IMTIAZ LARIOS NP Attending Physician: BRITTANY GARCIA MD Discharge Summary PROCEDURES PERFORMED DURING STAY: None ADMITTING DIAGNOSES: -Acute sigmoid colon diverticulitis -Constipation -Leukocytosis with left shift -History of COPD with 40+ pack year smoking history DISCHARGE DIAGNOSES: -Acute sigmoid colon diverticulitis, stable -Constipation, improved -Leukocytosis with left shift, resolved -History of COPD with 40+ pack year smoking history COMPLICATIONS/CHIEF COMPLAINT: Diverticulitis. HISTORY OF PRESENT ILLNESS: Bjorn is a pleasant 55yo male w/ notable PMHx of COPD, depression, vertigo, 40+ pack year smoker, and migraines with aura, who presented to the [facility] ED via personal bicycle early on the morning of 12/05/2020 c/o left lower abdominal quadrant discomfort/pressure, constipation, and generally feeling unwell. He reports that at 7 PM the prior evening (12/04) the patient felt "crappy" with associated diaphoresis. He also had not had a bowel movement for the past 3 days with the accompanying left lower quadrant discomfort and pressure. During the overnight of , patient continued to wake up every hour to urinate and was experiencing intermittent cold and hot sweats with nausea. After smoking a cigarette around 1 AM, he was concerned enough about his symptoms and subsequently decided to present to the ED. In the ED, patient was found to have leukocytosis with a left shift, and CT abdomen pelvis showed sigmoid colonic changes in the form of adjacent stranding, enhancement, and thickening consistent with acute diverticulitis. No free air indicating perforation was appreciated. The ED provider subsequently contacted the on-call general surgeon regarding CT results (Dr. Morelos), and admission was chosen for continued surveillance with administration of antibiotics. Patient was administered a one-time dose of intravenous Zosyn, as well as a 1 L normal saline bolus. Blood cultures were drawn as well as a respiratory panel. Urinalysis was unremarkable other than 2+ blood. EKG showed normal sinus rhythm. A rectal exam was done by ED providers that was unremarkable for any ma sses, bleeding sources, or other remarkable pathology. Patient was subsequently admitted under the care of the hospitalist service under observation status primarily for acute colonic diverticulitis. HOSPITAL COURSE: Upon admission, discussion was had with the on-call general surgeon (Dr. Morelos) regarding the patient's CT abdomen pelvis imaging findings. Due to the patient's relatively mild symptoms, collaborative decision was made to switch patient to oral antibiotics in the form of metronidazole (500 mg every 8 hours) and ciprofloxacin (500 mg twice daily). Plan was to admit patient under observation status to monitor repeat blood count, overall status, and hopefully encourage bowel movement. Scheduled MiraLAX was ordered as was as needed docusate. Of note, initial blood cultures taken in the ED showed preliminary result of no growth after 24 hours. On the morning of hospital day #2 (12/06), patient did have a bowel movement that he described as a small amount of stool but formed. He had no associated pain with defecation, tenesmus, melena, hematochezia, and had no blood on the toilet tissue. Overnight, he denied any fever, chills, night sweats, significant abdominal pain, nausea, or vomiting. In addition, morning CBC showed a resolution of his leukocytosis. Due to the patient's resolved leukocytosis, stability overnight into the morning, and the fact he had a bowel movement without any significant issues all led to collaborative decision for discharge on 12/06. It was explained to the patient that he will need to continue both antibiotic medications for duration of 10 days total (through 12/14) and that those medications had been sent to his [facility] pharmacy on [facility] in [place]. 5-day course of both as needed docusate and MiraLAX was also sent to his pharmacy. Patient was advised that should he have any of the presenting symptoms return and/or significantly worsen, that he is to present to the emergency department. Patient was also advised to follow-up with his primary care physician within next 3 to 5 days. Patient verbally acknowledged discharge management plan and was in agreement. Also of note, patient did have his home COPD inhalers continued upon admission. He had teds and sequentials ordered for DVT prophylaxis, and he did receive 1 dose of as needed Tylenol around 8 PM on 12/05. DISCHARGE MEDICATIONS: Please see below. ALLERGIES: Please see below. PHYSICAL EXAMINATION ON DISCHARGE: VITAL SIGNS: Please see below. GENERAL: Pleasant male. At times loquacious and a bit anxious during exam. No acute distress. HEENT: Normocephalic. No significant traumatic trauma of head. There is some mild sweating on the forehead. Noninjected, anicteric sclera. NECK: Supple. Trachea midline. No lymphadenopathy appreciated. CARDIOVASCULAR EXAMINATION: Regular rate, regular rhythm. Normal S1, S2. No murmurs or rubs were appreciated. RESPIRATORY EXAMINATION: Slightly decreased tidal volume with no appreciable adventitious breath sounds. Symmetric chest expansion. Breathing room air and speaking full sentences. ABDOMINAL EXAMINATION: Soft, nontender nondistended. There is no rigidity or guarding appreciated. Normoactive bowel sounds throughout. No hepatosplenomegaly or palpable pulses appreciated. EXTREMITIES: 2+ radial pulses bilaterally. Bilateral lower extremities are free of pitting edema. SKIN: Still a bit clammy but less so compared to yesterday's exam. NEUROLOGICAL EXAMINATION: No gross focal neurologic deficits appreciated. Nondysarthric speech. Nonantalgic gait. PSYCHIATRIC EXAMINATION: Pleasant mood, mildly anxious at times. Affect appears appropriate LABORATORY DATA: Please see below. IMAGING: CT abdomen pelvis with IV contrast, 12/05/2020 FINDINGS: Lungs: The visualized portions of the lung bases are normal. Liver: There are no focal liver lesions present. Gallbladder and bile ducts: The gallbladder is normal with no stones or biliary ductal dilation. Pancreas: The pancreas is normal with no ductal dilation. Spleen: The spleen is normal. Adrenal glands: The adrenal glands are normal. Kidneys and ureters: The kidneys are unremarkable. There are no ureteral stones or hydronephrosis. Stomach and bowel: Mild diverticulosis is present in the distal colon. Mild diverticulosis is present in the distal colon. There is segmental thickening and mucosal hyperenhancement of the mid sigmoid colon with a thickened diverticulum and adjacent stranding. There is mild segmental thickening of the distal sigmoid colon and proximal rectum, which may be due to secondary inflammation as it passes close to the inflamed segment of the mid sigmoid colon. The small bowel appears unremarkable. Appendix: There has been an appendectomy. Intraperitoneal space: There is a trace of free fluid in the pelvis. No organized fluid collections are identified. There is no free intraperitoneal air. Retroperitoneal space: There is mild, nonspecific stranding in the retroperitoneum around the distal abdominal aorta and the proximal iliac arteries, not seen on the prior exam. Vasculature: No aortic aneurysm. Atherosclerotic changes are present in the infrarenal abdominal aorta and the common iliac arteries. Lymph nodes: No lymphadenopathy is seen. Urinary bladder: The bladder is unremarkable. No stones identified. Reproductive: The prostate gland appears normal. Bones/joints: There are pars defects bilaterally at L5. There is a small anterolisthesis of L5 on S1 and evidence degenerative disc disease at this level. Soft tissues: The soft tissues appear unremarkable. IMPRESSION: 1. Segmental thickening and hyperenhancement of the sigmoid colon with a thickened diverticulum, adjacent stranding, and a small amount of free fluid, most consistent with acute diverticulitis. No evidence of abscess or perforation. 2. Mild thickening of the distal sigmoid colon/proximal rectum, which are adjacent to the inflamed segment of the mid sigmoid colon, and may be secondarily inflamed. 3. Nonspecific stranding in the retroperitoneum around the distal abdominal aorta and the proximal common iliac arteries. 4. Atherosclerotic plaque in the infrarenal aorta and common iliac arteries but no aneurysmal dilation. PROGNOSIS: Good ACTIVITY: As tolerated DIET: High-fiber and COPD diet (avoiding dairy when possible) DISPOSITION: Discharge home DISCHARGE INSTRUCTIONS & ITEMS TO FOLLOWUP ON ON OUTPATIENT: -Prescriptions for both metronidazole antibiotic and ciprofloxacin antibiotic to complete 10-day course were called in to patient's [facility] on [facility]. He will take 2 more metronidazole pills today, then resume 3 times a day dosing beginning tomorrow 12/07 and running through 12/14. He will take 1 more ciprofloxacin tablet today and then resume twice a day dosing tomorrow 12/07 and running through 12/14. -Follow-up with primary care provider (Imtiaz Larios) within the next 3 to 5 days. Work with Larios to attempt smoking cessation. -Monitor your symptoms, should your abdominal pain, weakness, nausea, general feeling unwell symptoms return and/or acutely worsen, please return to the emergency department. -Please comply with the above treatment plan. -Thank you for the opportunity to participate in your care. DISCHARGE CONDITION: Stable TIME SPENT ON DISCHARGE: 35 minutes Vital Signs/I&Os Vital Signs Date Time Temp Pulse Resp B/P (MAP) Pulse Ox O2 Delivery O2 Flow Rate FiO2 12/06/20 05:59 97.8 80 20 128/96 (107) 97 Room Air I&O- Last 24 Hours up to 6 AM 12/06/20 06:00 Intake Total 3070 ml Output Total 2450 ml Balance 620 ml Laboratory Data Labs 24H Laboratory Tests 2 12/05/20 10:53: Lactic Acid Level 0.8 12/06/20 05:56: Immature Granulocyte % (Auto) 0.4, Neutrophils (%) (Auto) 60.0, Lymphocytes (%) (Auto) 25.9, Monocytes (%) (Auto) 11.5H, Eosinophils (%) (Auto) 1.8, Basophils (%) (Auto) 0.4, Neutrophils # (Auto) 4.4, Lymphocytes # (Auto) 1.9, Monocytes # (Auto) 0.8, Eosinophils # (Auto) 0.1, Basophils # (Auto) 0.0, Nucleated Red Blood Cells % (auto) 0.0, Anion Gap 4L, Glomerular Filtration Rate > 60.0, Calcium Level 8.8, Total Bilirubin 0.6, Aspartate Amino Transf (AST/SGOT) 17, Alanine Aminotransferase (ALT/SGPT) 25, Alkaline Phosphatase 56, Total Protein 7.6, Albumin 3.4, Albumin/Globulin Ratio 0.8 CBC/BMP Laboratory Tests 12/06/20 05:56 Microbiology Microbiology 12/05/20 Blood Culture - Preliminary, Resulted No growth after 24 hours . All specim... 12/05/20 Respiratory Virus Panel (PCR) ([facility]) - Final, Complete 12/05/20 Blood Culture - Preliminary, Resulted No growth after 24 hours . All specim... Discharge Medications Scheduled Fluticasone/Vilanterol (Breo Ellipta 100-25 Mcg INH) 1 Each Blst.w.dev, 1 PUFF INH DAILY, (Reported) Ibuprofen (Ibu-200) 200 Mg Tablet, 600 MG PO DAILY, (Reported) Polyethylene Glycol 3350 (Miralax) 17 Gm Powd.pack, 1 PKT PO DAILYPRN Scheduled PRN Albuterol Sulfate (Proair Hfa) 108 Mcg/Act Aer, 2 PUFFS INH Q4H PRN for SHORTNESS OF BREATH, (Reported) Docusate Sodium (Dok) 100 Mg Capsule, 100 MG PO BID PRN for CONSTIPATION Allergies Coded Allergies: morphine (Verified Allergy, Severe, CARDIAC ARREST, 12/05/20) sertraline (Verified Adverse Reaction, Unknown, DIARRHEA, 12/05/20) GME ATTESTATION GME ATTESTATION My faculty preceptor for this patient encounter was physically present during the encounter and was fully available. All aspects of the patient interview, examination, medical decision making process, and medical care plan development were reviewed and approved by the faculty preceptor. The faculty preceptor is aware and concurs with the plan as stated in the body of this note and will attest to such by his/her cosignature. ATTENDING NOTE I, Brittany Garcia, have independently examined this patient and performed my own physical exam, as well as reviewed the documentation and edited where necessary. I have discussed in detail with the resident / student the findings and plan of treatment as documented by the resident / student and edited their note. I agree with their findings and treatment plan and have edited their documentation. I will continue to follow the patient during this hospital stay. Time spent on discharge 20 minutes LYNDA SARMIENTO D.O. Dec 06, 2020 09:53 BRITTANY GARCIA MD Dec 06, 2020 11:43
== END 2020-12-06 10:35 | disposition home or self-care (01) ==
LOC: M ED 01:38 → M ED INP 01:39 → ENRESERV 15:10 → M MS5PR 17:00
PROVIDERS: ADMIT Internal Medicine; ATTEND Internal Medicine
DX: K57.32 Diverticulitis of large intestine without perforation or abscess without bleeding (principal); K59.00 Constipation, unspecified; D72.829 Elevated white blood cell count, unspecified; J44.9 Chronic obstructive pulmonary disease, unspecified; F32.9 Major depressive disorder, single episode, unspecified; F17.218 Nicotine dependence, cigarettes, with other nicotine-induced disorders; G43.909 Migraine, unspecified, not intractable, without status migrainosus; M54.5 Low back pain; Z88.5 Allergy status to narcotic agent; Z88.8 Allergy status to other drugs, medicaments and biological substances; Z79.899 Other long term (current) drug therapy
CPT/HCPCS: 36415; 71045; 74177; 80048; 80053; 80076; 81001; 83605; 83690; 85025; 87040; 87798; 93005; 94640; 96361; 96365; 99285; G0378; J2543; Q9967

== ENCOUNTER → 2021-01-13 | Outpatient (CLI) | payer MEDICARE, MEDICAID ==
[~2021-01-13] MED LIST changes: +BREO1INH INH; +DOK1CAP7 PO; +IBUP200T45 PO; +MIRA1POW3 PO
[2021-01-13 17:56] LABS: ALBUMIN 3.8 GM/DL (3.2-5.2); ALT/SGPT 37 U/L (12-78); BILIRUBIN,TOTAL 0.3 MG/DL (0.2-1.0); BLOOD UREA NITROGEN 8 MG/DL (7-18); CALCIUM LEVEL 9.5 MG/DL (8.5-10.1); CARBON DIOXIDE LEVEL 26 MEQ/L (21-32); CHLORIDE LEVEL 106 MEQ/L (98-107); CHOLESTEROL LEVEL 240 MG/DL (<200); CHOLESTEROL RISK RATIO 5.581 (<5); CREATININE FOR GFR 1.11 MG/DL (0.70-1.30); FREE T4 0.91 NG/DL (0.76-1.46); GLOMERULAR FILTRATION RATE > 60.0 (>56); GLUCOSE, FASTING 93 MG/DL (70-100); HDL CHOLESTEROL 43 MG/DL (>40); LDL CHOLESTEROL 163 MG/DL (<100); NON-HDL-C 197 MG/DL; POTASSIUM SERUM 4.7 MEQ/L (3.5-5.1); SODIUM LEVEL 139 MEQ/L (136-145); TOTAL 25(OH) VITAMIN D 25.6 NG/ML (30.0-100.0); TRIGLYCERIDES LEVEL 168 MG/DL (<150)
== END ==
LOC: M PLALAB 12:56
PROVIDERS: ATTEND Nurse Practitioner Family
DX: E55.9 Vitamin D deficiency, unspecified (principal); E78.2 Mixed hyperlipidemia; M51.36 Other intervertebral disc degeneration, lumbar region

== ENCOUNTER 2021-01-27 03:52 | Emergency (ER) | payer MEDICARE, MEDICAID ==
[~2021-01-27] VITALS: Ht 177.8 cm; Wt 95.1 kg
[2021-01-27 03:52] VITALS: BP 151/99
[~2021-01-27 03:52] MED LIST changes: +DOK1CAP4 PO; -DOK1CAP7 PO
[2021-01-28] MEDS ORDERED: AUGM875T28 PO (08:23)
== END 2021-01-27 05:07 | disposition left against medical advice (07) ==
LOC: M ED 03:52
DX: Z53.29 Procedure and treatment not carried out because of patient's decision for other reasons (principal)

== ENCOUNTER 2021-01-27 22:18 | Emergency (ER) | payer MEDICARE, MEDICAID ==
[~2021-01-27] VITALS: Ht 177.8 cm; Wt 95.6 kg
[2021-01-28] MEDS ORDERED: NS 1,000 ML IV ONE (03:15)
[2021-01-28 04:21] LABS: BASO % 0.3 % (0.0-1.0); EOS # 0.1 10^3/uL (0.0-0.5); EOS % 1.3 % (0.0-3.0); HEMATOCRIT 41.6 % (42.0-52.0); HEMOGLOBIN 14.5 g/dl (13.5-17.5); LYMPH # 2.6 10^3/uL (1.5-5.0); MEAN CORPUSCULAR HEMOGLOBIN 32.7 pg (27.0-33.0); MEAN CORPUSCULAR HGB CONC 34.9 g/dl (32.0-36.5); MEAN CORPUSCULAR VOLUME 93.9 fl (80.0-96.0); MONO # 0.9 10^3/uL (0.0-0.8); MONO % 8.9 % (2.0-8.0); NEUTROPHILS # 6.7 10^3/uL (1.5-8.5); PLATELET COUNT, AUTOMATED 215 10^3/uL (150-450); RED BLOOD COUNT 4.43 10^6/uL (4.30-6.10); WHITE BLOOD COUNT 10.5 10^3/uL (4.0-10.0)
[2021-01-28] MEDS ORDERED: ISOVUE-370 76% 100ML VIAL As Ordered ONE (05:08)
[2021-01-28 05:58] LABS: ALBUMIN 3.6 GM/DL (3.2-5.2); BILIRUBIN,DIRECT 0.1 MG/DL (0.0-0.2); BILIRUBIN,TOTAL 0.5 MG/DL (0.2-1.0); TOTAL PROTEIN 6.6 GM/DL (6.4-8.2)
--- NOTE | 2021-01-28 07:15 | REPVR ---
PROCEDURE INFORMATION: Exam: CT Abdomen And Pelvis With Contrast Exam date and time: 01/28/2021 5:06 AM Age: 55 years old Clinical indication: Abdominal pain; Localized; Left lower quadrant (llq); Additional info: Llq abd pain TECHNIQUE: Imaging protocol: Computed tomography of the abdomen and pelvis with contrast. Radiation optimization: All CT scans at this facility use at least one of these dose optimization techniques: automated exposure control; mA and/or kV adjustment per patient size (includes targeted exams where dose is matched to clinical indication); or iterative reconstruction. Contrast material: ISO; Contrast volume: 100 ml; Contrast route: INTRAVENOUS (IV); COMPARISON: CT ABD/PEL W/IV CONTRAST ONLY 12/05/2020 4:53 AM FINDINGS: Lungs: There is focal area of hazy ground-glass opacity in the right lung base on axial image 13. Mediastinal space: There is a small sliding hiatal hernia. Liver: Normal. No mass. Gallbladder and bile ducts: Normal. No calcified stones. No ductal dilation. Pancreas: Normal. No ductal dilation. Spleen: Normal. No splenomegaly. Adrenal glands: Normal. No mass. Kidneys and ureters: Normal. No hydronephrosis. Stomach and bowel: There is mild sigmoid colon diverticulosis. There is thickening of proximal small bowel loops-jejunum with mild increased mesenteric vascularity/mesenteric congestion. Appendix: The patient is status post appendectomy. Intraperitoneal space: Unremarkable. No free air. No significant fluid collection. Vasculature: Unremarkable. No abdominal aortic aneurysm. Lymph nodes: Unremarkable. No enlarged lymph nodes. Urinary bladder: Unremarkable as visualized. Reproductive: Unremarkable as visualized. Bones/joints: There is bilateral L5 spondylolysis with grade 1 anterolisthesis of L5 on S1 with L5-S1 disc degenerative changes. Soft tissues: There is a small left inguinal fat containing hernia. IMPRESSION: 1. CT findings suggestive of proximal enteritis/jejunitis. 2. Mild sigmoid diverticulosis with mild thickening of the sigmoid colon. Mild underlying sigmoid diverticulitis cannot be excluded. 3. Small sliding hiatal hernia. 4. Small left inguinal fat containing hernia. 5. Focal area of ground-glass haziness in the right lung base minimally more prominent than the prior exam could represent focal area of chronic inflammation/early scarring however follow-up is suggested. Recommend CT Chest at 6-12 months to confirm persistence, then CT Chest at 3 years and 5 years. (Reference: Dionna) REFERENCES: Dionna Shrestha, et al. Guidelines for Management of Incidental Pulmonary Nodules Detected on CT Images: From the Fleischner Society 2017. Radiology. 2017;284(1):228-243. Electronically signed by: Danny James On 01/28/2021 07:14:40 AM
[2021-01-28 07:47] VITALS: BP 144/98
[2021-01-28] MEDS ORDERED: AUGM875T28 PO (08:23)
--- NOTE | 2021-01-28 08:25 | ED PDOC ---
Post-Departure Follow-Up radiology report faxed to Julee Mcfarlane MD Jan 28, 2021 08:25
== END 2021-01-28 08:40 | disposition home or self-care (01) ==
LOC: M ED 22:18
DX: K52.1 Toxic gastroenteritis and colitis (principal); K57.32 Diverticulitis of large intestine without perforation or abscess without bleeding; R91.8 Other nonspecific abnormal finding of lung field; F41.1 Generalized anxiety disorder; J44.9 Chronic obstructive pulmonary disease, unspecified; E66.9 Obesity, unspecified; F17.200 Nicotine dependence, unspecified, uncomplicated; Z79.899 Other long term (current) drug therapy; Z88.5 Allergy status to narcotic agent; Z88.8 Allergy status to other drugs, medicaments and biological substances
CPT/HCPCS: 74177; 80047; 80076; 83690; 85025; 93041; 99285; Q9967

== ENCOUNTER → 2021-04-09 | Outpatient (CLI) | payer MEDICARE, MEDICAID ==
--- NOTE | 2021-04-09 14:37 | REP ---
INDICATION: LT HIP PAIN. COMPARISON: None. TECHNIQUE: AP pelvis. FINDINGS: There are bilateral femoral head cam deformities. There is mild to moderate bilateral 3 joint space narrowing right greater than left. There is no acute fracture, dislocation, or subluxation. There is no evidence of buttressing. IMPRESSION: Chronic changes as described above. <Electronically signed by Luke Vázquez > 04/09/21 [id number]
== END ==
LOC: M SOG 13:17
PROVIDERS: ATTEND Orthopaedic Surgery Adult Reconstructive Orthopaedic Surgery
DX: M25.552 Pain in left hip (principal)

== ENCOUNTER → 2021-09-28 | Outpatient (CLI) | payer MEDICARE, MEDICAID ==
[2021-09-28 18:04] LABS: BILIRUBIN,TOTAL 0.4 MG/DL (0.2-1.0); CALCIUM LEVEL 9.8 MG/DL (8.5-10.1); CREATININE FOR GFR 1.35 MG/DL (0.70-1.30); GLOMERULAR FILTRATION RATE 57.8 (>56); POTASSIUM SERUM 4.4 MEQ/L (3.5-5.1)
[2021-09-28 18:05] LABS: ALBUMIN 4.1 GM/DL (3.2-5.2); CHOLESTEROL RISK RATIO 6.17 (<5); FREE T4 0.95 NG/DL (0.76-1.46); THYROID STIMULATING HORMONE 0.956 uIU/ML (0.358-3.740); TOTAL PROTEIN 7.4 GM/DL (6.4-8.2)
[2021-09-28 18:06] LABS: TOTAL 25(OH) VITAMIN D 27.8 NG/ML (30.0-100.0)
[2021-09-28 18:37] LABS: HEMOGLOBIN A1c 5.8 %
== END ==
LOC: M PLALAB 13:47
PROVIDERS: ATTEND Nurse Practitioner Family
DX: E78.2 Mixed hyperlipidemia (principal); E55.9 Vitamin D deficiency, unspecified; F41.9 Anxiety disorder, unspecified

== ENCOUNTER 2023-07-28 14:00 | Emergency (ER) | payer MEDICARE, MEDICAID ==
[~2023-07-28] VITALS: Ht 177.8 cm; Wt 91.3 kg
[2023-07-28] MEDS ORDERED: FLUTISP (14:21)
[2023-07-28] MEDS ORDERED: AZEL1SPR3 (14:21)
[2023-07-28 17:11] VITALS: BP 119/79; TEMP 98.4; O2SAT 95
== END 2023-07-28 17:10 | disposition home or self-care (01) ==
LOC: M ED 14:00
DX: J06.9 Acute upper respiratory infection, unspecified (principal); F20.0 Paranoid schizophrenia; Z88.5 Allergy status to narcotic agent; Z88.8 Allergy status to other drugs, medicaments and biological substances; Z79.52 Long term (current) use of systemic steroids; Z79.1 Long term (current) use of non-steroidal anti-inflammatories (NSAID); Z79.899 Other long term (current) drug therapy

== ENCOUNTER → 2023-08-22 | Outpatient (CLI) | payer MEDICARE, MEDICAID ==
[~2023-08-22] MED LIST changes: +AZEL1SPR3; +FLUTISP; -MIRA1POW3 PO; +MIRA33506 PO
[2023-08-22 17:23] LABS: BASO % 0.3 % (0.0-1.0); EOS # 0.2 10^3/uL (0.0-0.5); EOS % 3.9 % (0.0-3.0); HEMATOCRIT 41.7 % (42.0-52.0); HEMOGLOBIN 14.3 g/dl (13.5-17.5); LYMPH # 1.9 10^3/uL (1.5-5.0); LYMPH % 30.9 % (24.0-44.0); MEAN CORPUSCULAR HEMOGLOBIN 32.9 pg (27.0-33.0); MEAN CORPUSCULAR HGB CONC 34.3 g/dl (32.0-36.5); MEAN CORPUSCULAR VOLUME 96.1 fl (80.0-96.0); MONO # 0.7 10^3/uL (0.0-0.8); MONO % 11.4 % (2.0-8.0); NEUTROPHILS # 3.3 10^3/uL (1.5-8.5); NEUTROPHILS % 53.2 % (36.0-66.0); PLATELET COUNT, AUTOMATED 183 10^3/uL (150-450); RED BLOOD COUNT 4.34 10^6/uL (4.30-6.10); WHITE BLOOD COUNT 6.2 10^3/uL (4.0-10.0)
[2023-08-22 17:47] LABS: ALKALINE PHOSPHATASE 61 U/L (46-116); ALT/SGPT 21 U/L (7.0-40); AST/SGOT 16 U/L (<34); BILIRUBIN,TOTAL 0.4 MG/DL (0.3-1.2); BLOOD UREA NITROGEN 9 MG/DL (9-23); CALCIUM LEVEL 8.8 MG/DL (8.3-10.6); CARBON DIOXIDE LEVEL 29 MMOL/L (20-31); CHLORIDE LEVEL 106 MMOL/L (98-107); CHOLESTEROL LEVEL 157 MG/DL (<200); CHOLESTEROL RISK RATIO 4.22 (<5); CREATININE FOR GFR 1.07 MG/DL (0.70-1.30); GLOMERULAR FILTRATION RATE > 60.0 (>49); GLUCOSE, FASTING 97 MG/DL (74-106); HDL CHOLESTEROL 37.2 MG/DL (>40); LDL CHOLESTEROL 91.8 MG/DL (<100); NON-HDL-C 119.8 MG/DL; POTASSIUM SERUM 4.4 MMOL/L (3.5-5.1); SODIUM LEVEL 136 MMOL/L (136-145); TOTAL PROTEIN 6.7 G/DL (5.7-8.2); TRIGLYCERIDES LEVEL 140 MG/DL (<150)
[2023-08-22 17:48] LABS: FREE T4 1.14 NG/DL (0.89-1.76); THYROID STIMULATING HORMONE 1.496 uIU/ML (0.55-4.78); TOTAL 25(OH) VITAMIN D 35.5 NG/ML (20.0-100.0)
[2023-08-22 18:01] LABS: HEMOGLOBIN A1c 5.4 % (4.0-6.0)
== END ==
LOC: M PLALAB 15:58
PROVIDERS: ATTEND Nurse Practitioner Family
DX: E78.2 Mixed hyperlipidemia (principal); E55.9 Vitamin D deficiency, unspecified; R73.03 Prediabetes; F41.9 Anxiety disorder, unspecified

== ENCOUNTER 2024-05-31 00:49 | Emergency (ER) | payer MEDICARE, MEDICAID ==
[~2024-05-31] VITALS: Ht 177.8 cm; Wt 84.5 kg
[2024-05-31 01:31] VITALS: TEMP 98.8
[2024-05-31 01:32] LABS: BASO % 0.3 % (0.0-1.0); EOS # 0.2 10^3/uL (0.0-0.5); EOS % 2.7 % (0.0-3.0); HEMATOCRIT 38.2 % (42.0-52.0); HEMOGLOBIN 13.3 g/dl (13.5-17.5); LYMPH # 1.2 10^3/uL (1.5-5.0); LYMPH % 13.7 % (24.0-44.0); MEAN CORPUSCULAR HEMOGLOBIN 33.6 pg (27.0-33.0); MEAN CORPUSCULAR HGB CONC 34.8 g/dl (32.0-36.5); MEAN CORPUSCULAR VOLUME 96.5 fl (80.0-96.0); MONO # 0.9 10^3/uL (0.0-0.8); MONO % 10.9 % (2.0-8.0); NEUTROPHILS # 6.2 10^3/uL (1.5-8.5); NEUTROPHILS % 72.2 % (36.0-66.0); PLATELET COUNT, AUTOMATED 183 10^3/uL (150-450); RED BLOOD COUNT 3.96 10^6/uL (4.30-6.10); WHITE BLOOD COUNT 8.6 10^3/uL (4.0-10.0)
[2024-05-31 01:54] LABS: ALBUMIN 3.5 G/DL (3.2-5.2); ALKALINE PHOSPHATASE 59 U/L (40-129); ALT/SGPT 20 U/L (7.0-40); AST/SGOT 33 U/L (<34); BILIRUBIN,DIRECT 0.1 MG/DL (<0.4); BILIRUBIN,TOTAL 0.4 MG/DL (0.3-1.2); BLOOD UREA NITROGEN 12 MG/DL (9-23); CARBON DIOXIDE LEVEL 23 MMOL/L (20-31); CHLORIDE LEVEL 108 MMOL/L (98-107); CREATININE FOR GFR 1.15 MG/DL (0.70-1.30); GLOMERULAR FILTRATION RATE > 60.0 (>49); GLUCOSE, FASTING 101 MG/DL (74-106); POTASSIUM SERUM 4.1 MMOL/L (3.5-5.1); SODIUM LEVEL 140 MMOL/L (136-145); TOTAL PROTEIN 6.9 G/DL (5.7-8.2)
[2024-05-31] MEDS: IPRATROPIUM 0.5MG/ALBUTEROL 2.5MG INH SOL UD 3ML (DUONEB) NEB SCH (01:55)
[2024-05-31] MEDS: methylPREDNISolone 125MG 2ML VIAL IV ONE (02:05)
[2024-05-31 02:30] VITALS: BP 133/69; O2SAT 93
[2024-05-31] MEDS ORDERED: PRED20TA PO (02:58)
== END 2024-05-31 03:13 | disposition home or self-care (01) ==
LOC: M ED 00:49
DX: J20.9 Acute bronchitis, unspecified (principal); B34.1 Enterovirus infection, unspecified; B34.8 Other viral infections of unspecified site; J44.9 Chronic obstructive pulmonary disease, unspecified; F17.200 Nicotine dependence, unspecified, uncomplicated; F20.0 Paranoid schizophrenia; Z79.52 Long term (current) use of systemic steroids; Z79.1 Long term (current) use of non-steroidal anti-inflammatories (NSAID); Z79.899 Other long term (current) drug therapy; Z88.5 Allergy status to narcotic agent; Z88.8 Allergy status to other drugs, medicaments and biological substances
CPT/HCPCS: 71045; 80048; 80076; 85025; 87486; 87581; 87633; 87798; 93005; 93041; 94640; 94760; 96374; 99284; J2919

== ENCOUNTER → 2025-03-19 | Outpatient (CLI) | payer MEDICARE, MEDICAID | LOC: M PLAIMG 10:14 | PROVIDERS: ATTEND Nurse Practitioner Family | DX: M47.816 Spondylosis without myelopathy or radiculopathy, lumbar region (principal) ==

== ENCOUNTER → 2025-04-22 | Outpatient (CLI) | payer MEDICARE, MEDICAID ==
[2025-04-22 14:08] LABS: ALT/SGPT 22.0 U/L (7.0-40); AST/SGOT 26.0 U/L (<34); CALCIUM LEVEL 9.0 MG/DL (8.3-10.6); CARBON DIOXIDE LEVEL 26.0 MMOL/L (20-31); CHLORIDE LEVEL 102.0 MMOL/L (98-107); CHOLESTEROL LEVEL 223.0 MG/DL (<200); CHOLESTEROL RISK RATIO 4.85 (<5); CREATININE FOR GFR 1.23 MG/DL (0.70-1.30); GLOMERULAR FILTRATION RATE 66.4 (>49); LDL CHOLESTEROL 156.3 MG/DL (<100); NON-HDL-C 177.1 MG/DL; POTASSIUM SERUM 4.7 MMOL/L (3.5-5.1); SODIUM LEVEL 136.0 MMOL/L (136-145); TRIGLYCERIDES LEVEL 104.0 MG/DL (<150)
[2025-04-22 14:12] LABS: FREE T4 1.12 NG/DL (0.89-1.76)
[2025-04-22 14:18] LABS: TOTAL 25(OH) VITAMIN D 27.5 NG/ML (20.0-100.0)
[2025-04-22 14:21] LABS: ESTIMATED AVERAGE GLUCOSE 108.0 MG/DL (60-110)
[2025-04-22 14:22] LABS: BASO # 0.0 10^3/uL (0.0-0.2); BASO % 0.5 % (0.0-1.0); EOS # 0.2 10^3/uL (0.0-0.5); EOS % 2.6 % (0.0-3.0); LYMPH # 1.9 10^3/uL (1.5-5.0); LYMPH % 31.5 % (24.0-44.0); MONO # 0.7 10^3/uL (0.0-0.8); MONO % 12.0 % (2.0-8.0); NEUTROPHILS # 3.3 10^3/uL (1.5-8.5); NEUTROPHILS % 53.1 % (36.0-66.0); PLATELET COUNT, AUTOMATED 225 10^3/uL (150-450)
== END ==
LOC: M WUC 09:41
PROVIDERS: ATTEND Nurse Practitioner Family
DX: E78.2 Mixed hyperlipidemia (principal); J44.9 Chronic obstructive pulmonary disease, unspecified; E55.9 Vitamin D deficiency, unspecified; F20.0 Paranoid schizophrenia; R73.03 Prediabetes

== ENCOUNTER 2025-06-14 11:29 | Emergency (ER) | payer MEDICARE, MEDICAID ==
[~2025-06-14] VITALS: Ht 177.8 cm; Wt 86.2 kg
[2025-06-14] MEDS ORDERED: INCR1INH (11:46)
[2025-06-14 12:28] LABS: BASO # 0.0 10^3/uL (0.0-0.2); BASO % 0.2 % (0.0-1.0); EOS # 0.1 10^3/uL (0.0-0.5); EOS % 1.2 % (0.0-3.0); LYMPH # 1.4 10^3/uL (1.5-5.0); LYMPH % 34.7 % (24.0-44.0); MONO # 0.6 10^3/uL (0.0-0.8); MONO % 13.9 % (2.0-8.0); NEUTROPHILS # 2.0 10^3/uL (1.5-8.5); NEUTROPHILS % 49.8 % (36.0-66.0); PLATELET COUNT, AUTOMATED 191 10^3/uL (150-450)
[2025-06-14 12:50] LABS: ALT/SGPT 27 U/L (7.0-40); AST/SGOT 32 U/L (<34); CALCIUM LEVEL 9.1 MG/DL (8.3-10.6); CARBON DIOXIDE LEVEL 24 MMOL/L (20-31); CHLORIDE LEVEL 100 MMOL/L (98-107); CK-MB VALUE MASS 4.1 NG/ML (<3.6); CREATININE FOR GFR 1.00 MG/DL (0.70-1.30); GLOMERULAR FILTRATION RATE 85.1 (>49); POTASSIUM SERUM 4.6 MMOL/L (3.5-5.1); SODIUM LEVEL 131 MMOL/L (136-145)
[2025-06-14 12:51] LABS: CPK CREATINE PHOSPHOKINASE 391 U/L (46-171); MB/CK RELATIVE INDEX 1.04 (< OR =4)
[2025-06-14 14:00] LABS: CK-MB VALUE MASS 4.4 NG/ML (<3.6)
[2025-06-14 14:01] LABS: CPK CREATINE PHOSPHOKINASE 343.0 U/L (46-171); MB/CK RELATIVE INDEX 1.28 (< OR =4)
[2025-06-14] MEDS ORDERED: ISOVUE-370 76% 100 ML VIAL As Ordered ONE (14:40)
[2025-06-14] MEDS: COMBIVENT RESPIMAT 100-20 MCG INHALER 4 GM INH STA (15:18)
[2025-06-14] MEDS ORDERED: PRED20TA PO (16:04)
[2025-06-14] MEDS ORDERED: AZIT-12 PO (16:04)
[2025-06-14 16:20] VITALS: BP 133/99; TEMP 96.8; O2SAT 96
[2025-06-14] MEDS ORDERED: LEVO75TAB PO (16:25)
== END 2025-06-14 16:38 | disposition home or self-care (01) ==
LOC: M ED 11:29
DX: J09.X2 Influenza due to identified novel influenza A virus with other respiratory manifestations (principal); J44.1 Chronic obstructive pulmonary disease with (acute) exacerbation; J18.9 Pneumonia, unspecified organism; I71.20 Thoracic aortic aneurysm, without rupture, unspecified; Z88.5 Allergy status to narcotic agent; Z88.8 Allergy status to other drugs, medicaments and biological substances; Z79.899 Other long term (current) drug therapy; Z79.51 Long term (current) use of inhaled steroids
CPT/HCPCS: 36415; 71045; 71275; 80048; 80076; 82550; 82553; 83690; 83880; 84484; 85025; 87486; 87581; 87633; 87798; 93005; 93041; 94640; 94760; 99285; J2919; Q9967